=== PATIENT | female | born 1930 | race Caucasian/White ===

== ENCOUNTER → 2016-12-18 | Outpatient (CLI) | payer MEDICARE, BC ==
--- NOTE | 2016-12-18 16:33 | RADRPT ---
PROCEDURE: XR pelvis / bilateral hips. CLINICAL INDICATION: Hip pain TECHNIQUE: AP pelvis/AP and lateral right and left hip views performed COMPARISON: No prior studies are available for comparison. FINDINGS: There is mild to moderate bilateral hip osteoarthrosis. This is associated with joint space narrowin g, subchondral sclerosis and osteophytosis. There is normal mineralization. No fractures or osseou s lesions are identified. The soft tissues are unremarkable. L4-5 posterior fixation with pedicle screws and connecting rods IMPRESSION: Mild to moderate bilateral hip osteoarthrosis. RPTAT: [facility] .Remy Levin MD, Date Time Electronically viewed and signed by .Remy Levin MD, on 12/18/2016 16:32 .B/
== END | disposition home or self-care (01) ==
LOC: HKI 15:00
PROVIDERS: ATTEND Orthopaedic Surgery
DX: M51.36 Other intervertebral disc degeneration, lumbar region (principal); M54.16 Radiculopathy, lumbar region; M54.5 Low back pain; Z98.1 Arthrodesis status
CPT/HCPCS: 73523; G0463